=== PATIENT | male | born 1935 | race Caucasian/White ===

== ENCOUNTER 2016-07-30 09:55 | Outpatient (CLI) | payer MEDICARE, OTHER ==
[2016-07-30 13:06] LABS: #Eosinphils 0.1 thou/uL (0.0-0.7); #Lymphocytes 1.3 thou/uL (1.20-3.40); #Monocytes 0.6 thou/uL (0.11-0.59); #Neutrophils 5.7 thou/uL (1.40-6.50); %Basophils 0.6 % (0.0-1.0); %Eosinophils 1.6 % (0.0-10.0); %Lymphocytes 16.9 % (21.0-51.0); %Monocytes 7.3 % (0.0-10.0); Hematocrit 35.9 % (42.0-52.0); Red Blood Cell (RBC) Count 3.66 mill/uL (4.70-6.10); White Blood Cell (WBC) Count 7.7 thou/uL (4.8-10.8)
[2016-07-30 13:29] LABS: ALT (SGPT) 21 U/L (0-55); AST (SGOT) 18 U/L (5-34); Alkaline Phosphatase 88 U/L (40-150); Anion Gap 13 mmol/L (10-20); BUN (Urea Nitrogen) 26 mg/dL (8.4-25.7); Bilirubin, Total 0.4 mg/dL (0.2-1.2); Calc. Creatinine Clearance 0 mL/min (70-130); Calcium 9.7 mg/dL (7.8-10.44); Carbon Dioxide 25 mmol/L (23-31); Chloride 109 mmol/L (98-107); Estimated GFR-MDRD 45; Globulin 2.8 g/dL (2.4-3.5); Protein, Total 6.9 g/dL (5.8-8.1)
[2016-07-30 13:51] LABS: Hemoglobin A1c 5.9 % (4.0-6.0)
== END 2016-07-30 09:56 ==
LOC: NAVSJIPCSP 09:55
PROVIDERS: ATTEND Internal Medicine
DX: E11.9 Type 2 diabetes mellitus without complications (principal); I10 Essential (primary) hypertension
CPT/HCPCS: 36415; 80053; 83036; 84443; 85025

== ENCOUNTER 2016-10-29 11:32 | Outpatient (CLI) | payer MEDICARE, OTHER ==
[2016-10-29 12:55] LABS: ALT (SGPT) 20 U/L (0-55); AST (SGOT) 19 U/L (5-34); Albumin 4.2 g/dL (3.4-4.8); Alkaline Phosphatase 77 U/L (40-150); Anion Gap 16 mmol/L (10-20); BUN (Urea Nitrogen) 23 mg/dL (8.4-25.7); Bilirubin, Total 0.5 mg/dL (0.2-1.2); Calc. Creatinine Clearance 0 mL/min (70-130); Carbon Dioxide 25 mmol/L (23-31); Chloride 107 mmol/L (98-107); Estimated GFR-MDRD 47; Globulin 2.7 g/dL (2.4-3.5); Glucose 157 mg/dL (83-110); Potassium 3.9 mmol/L (3.5-5.1); Protein, Total 6.9 g/dL (5.8-8.1); Sodium 144 mmol/L (136-145)
[2016-10-29 13:04] LABS: #Basophils 0.1 thou/uL (0.0-0.2); #Eosinphils 0.3 thou/uL (0.0-0.7); #Lymphocytes 1.6 thou/uL (1.20-3.40); #Monocytes 0.7 thou/uL (0.11-0.59); #Neutrophils 4.2 thou/uL (1.40-6.50); %Basophils 1.1 % (0.0-1.0); %Eosinophils 4.6 % (0.0-10.0); %Lymphocytes 22.8 % (21.0-51.0); %Monocytes 9.5 % (0.0-10.0); %Neutrophils 62.1 % (42.0-75.0); Hemoglobin 12.1 g/dL (14.0-18.0); Mean Corpuscular HGB CONC 33.3 g/dL (32.0-36.0); Mean Corpuscular Hemoglobin 31.9 pg (27.0-31.0); Mean Platelet Volume 9.5 fL (7.4-10.4); Platelet Count 175 thou/uL (130-400); RBC Distribution Width 13.8 % (11.5-14.5); Red Blood Cell (RBC) Count 3.79 mill/uL (4.70-6.10); White Blood Cell (WBC) Count 6.8 thou/uL (4.8-10.8)
[2016-10-29 13:16] LABS: Hemoglobin A1c 6.2 % (4.0-6.0)
== END 2016-10-29 11:33 | disposition home or self-care (01) ==
LOC: NAVSJIPCSP 11:32
PROVIDERS: ATTEND Internal Medicine
DX: E11.9 Type 2 diabetes mellitus without complications (principal); E78.5 Hyperlipidemia, unspecified; I10 Essential (primary) hypertension
CPT/HCPCS: 36415; 80053; 83036; 85025

== ENCOUNTER 2017-01-28 12:14 | Outpatient (CLI) | payer MEDICARE, OTHER ==
[2017-01-28 12:32] LABS: Hemoglobin A1c 6.1 % (4.0-6.0)
[2017-01-28 12:36] LABS: Anion Gap 18 mmol/L (10-20); BUN (Urea Nitrogen) 25 mg/dL (8.4-25.7); Calc. Creatinine Clearance 0 mL/min (70-130); Calcium 9.4 mg/dL (7.8-10.44); Carbon Dioxide 22 mmol/L (23-31); Chloride 106 mmol/L (98-107); Estimated GFR-MDRD 41; Glucose 169 mg/dL (83-110); Sodium 142 mmol/L (136-145)
== END 2017-01-28 12:15 | disposition home or self-care (01) ==
LOC: NAVSJIPCSP 12:14
PROVIDERS: ATTEND Internal Medicine
DX: I12.9 Hypertensive chronic kidney disease with stage 1 through stage 4 chronic kidney disease, or unspecified chronic kidney disease (principal); N18.3 Chronic kidney disease, stage 3 (moderate); E11.22 Type 2 diabetes mellitus with diabetic chronic kidney disease
CPT/HCPCS: 36415; 80048; 83036; G0103

== ENCOUNTER 2021-09-27 01:59 | Emergency (ER) | payer MEDICARE ==
[2021-09-27 02:30] LABS: #Basophils 0.1 thou/uL (0.0-0.2); #Eosinphils 0.3 thou/uL (0.0-0.7); #Lymphocytes 1.9 thou/uL (1.20-3.40); #Monocytes 0.6 thou/uL (0.11-0.59); #Neutrophils 3.4 thou/uL (1.40-6.50); %Basophils 1.2 % (0.0-1.0); %Eosinophils 4.6 % (0.0-10.0); %Lymphocytes 30.4 % (21.0-51.0); %Monocytes 9.6 % (0.0-10.0); %Neutrophils 54.3 % (42.0-75.0); Hemoglobin 11.6 g/dL (14.0-18.0); Mean Corpuscular HGB CONC 31.6 g/dL (32.0-36.0); Mean Corpuscular Hemoglobin 29.1 pg (27.0-31.0); Mean Platelet Volume 9.2 fL (7.4-10.4); Platelet Count 194 thou/uL (130-400); RBC Distribution Width 13.9 % (11.5-14.5); White Blood Cell (WBC) Count 6.3 thou/uL (4.8-10.8)
[2021-09-27] MEDS ORDERED: Aspirin Chewable 81 MG TAB ONE (02:32)
[2021-09-27 02:44] LABS: ALT (SGPT) 12 U/L (8-55); AST (SGOT) 16 U/L (5-34); Alkaline Phosphatase 74 U/L (40-110); Anion Gap 13 mmol/L (10-20); BUN (Urea Nitrogen) 23 mg/dL (8.4-25.7); Bilirubin, Total 0.3 mg/dL (0.2-1.2); Calc. Creatinine Clearance 0 mL/min (70-130); Calcium 10.1 mg/dL (7.8-10.44); Carbon Dioxide 25 mmol/L (23-31); Chloride 107 mmol/L (98-107); Globulin 3.1 g/dL (2.4-3.5); Glucose 151 mg/dL (83-110); Potassium 3.9 mmol/L (3.5-5.1); Protein, Total 7.1 g/dL (5.8-8.1); Sodium 141 mmol/L (136-145)
[2021-09-27] MEDS ORDERED: Sodium Chloride 0.9% 1,000 ML ONE (03:05)
[2021-09-27 03:49] LABS: SARS-CoV-2 NAA Rapid Test Not Detected (NotDetected)
== END 2021-09-27 04:15 | disposition short-term general hospital (02) ==
LOC: NAV ERS 01:59
DX: R07.9 Chest pain, unspecified (principal); N28.9 Disorder of kidney and ureter, unspecified; I44.0 Atrioventricular block, first degree; E11.9 Type 2 diabetes mellitus without complications; I10 Essential (primary) hypertension; E78.5 Hyperlipidemia, unspecified; Z20.822 Contact with and (suspected) exposure to COVID-19; Z86.73 Personal history of transient ischemic attack (TIA), and cerebral infarction without residual deficits; Z87.891 Personal history of nicotine dependence; Z79.82 Long term (current) use of aspirin; Z79.84 Long term (current) use of oral hypoglycemic drugs; Z79.899 Other long term (current) drug therapy
CPT/HCPCS: 71045; 80053; 83690; 84484; 85025; 93005; J7050; U0002

== ENCOUNTER 2022-04-17 10:03 | Emergency (ER) | payer MEDICARE ==
[2022-04-17] MEDS ORDERED: Bacitracin 1 PK ONE (10:30)
[2022-04-17] MEDS ORDERED: Ondansetron PF 4 MG/2 ML Vial ONE (10:31)
[2022-04-17] MEDS ORDERED: Sodium Chloride 0.9% 500 ML ONE (10:31)
[2022-04-17] MEDS ORDERED: Morphine 2 MG/ML VIAL ONE (10:31)
[2022-04-17 10:55] LABS: ALT (SGPT) 15 U/L (8-55); AST (SGOT) 19 U/L (5-34); Albumin 4.6 g/dL (3.4-4.8); Alkaline Phosphatase 81 U/L (40-110); Anion Gap 21 mmol/L (10-20); BUN (Urea Nitrogen) 24 mg/dL (8.4-25.7); Bilirubin, Total 0.9 mg/dL (0.2-1.2); Calc. Creatinine Clearance 0 mL/min (70-130); Carbon Dioxide 18 mmol/L (23-31); Chloride 107 mmol/L (98-107); Estimated GFR 37; Globulin 2.7 g/dL (2.4-3.5); Glucose 195 mg/dL (83-110); Potassium 4.5 mmol/L (3.5-5.1); Protein, Total 7.3 g/dL (5.8-8.1); Sodium 141 mmol/L (136-145)
[2022-04-17 10:57] LABS: #Basophils 0.1 thou/uL (0.0-0.2); #Eosinphils 0.2 thou/uL (0.0-0.7); #Lymphocytes 1.2 thou/uL (1.20-3.40); #Monocytes 0.5 thou/uL (0.11-0.59); #Neutrophils 5.6 thou/uL (1.40-6.50); %Basophils 1.4 % (0.0-1.0); %Eosinophils 2.6 % (0.0-10.0); %Lymphocytes 16.2 % (21.0-51.0); %Neutrophils 73.8 % (42.0-75.0); Hemoglobin 11.7 g/dL (14.0-18.0); Mean Corpuscular HGB CONC 30.6 g/dL (32.0-36.0); Mean Corpuscular Hemoglobin 29.1 pg (27.0-31.0); Mean Platelet Volume 9.5 fL (7.4-10.4); Platelet Count 202 thou/uL (130-400); RBC Distribution Width 14.1 % (11.5-14.5); Red Blood Cell (RBC) Count 4.03 mill/uL (4.70-6.10); White Blood Cell (WBC) Count 7.6 thou/uL (4.8-10.8)
[2022-04-17] MEDS ORDERED: CEFAZOLIN 1 GM VIAL ONE (11:13)
[2022-04-17] MEDS ORDERED: Sodium Chloride 0.9% 100 ML ONE (11:13)
[2022-04-17 11:48] LABS: Prothrombin Time 13.3 sec (12.0-14.7)
[2022-04-17 11:49] LABS: PTT 30.1 sec (22.9-36.1)
[2022-04-17 13:32] LABS: Bilirubin Negative (Negative); Blood, Urine Trace (Negative); Clarity Clear (Clear); Glucose, Urine (Dipstick) Negative (Negative); Ketone, Urine 15 mg/dL (Negative); Leukocyte Negative (Negative); Nitrite Negative (Negative); Protein, Urine (Dipstick) 100 mg/dL (Neg-Trace); Specific Gravity, Urine 1.015 (1.005-1.030); Urobilinogen 0.2 mg/dL (Less than 2); pH, Urine 5.5 (5.0-9.0)
[2022-04-17 13:39] LABS: RBC/HPF 0-3 HPF (0-3); Squamous Epithelial None Seen HPF (0-3); WBC/HPF None Seen HPF (0-3)
[2022-04-17 13:40] LABS: Bacteria/HPF None Seen HPF (None Seen); Mucous/LPF Few LPF (<2+)
== END 2022-04-17 13:20 | disposition short-term general hospital (02) ==
LOC: NAV ERS 10:03
DX: S06.309A Unspecified focal traumatic brain injury with loss of consciousness of unspecified duration, initial encounter (principal); S02.672A Fracture of alveolus of left mandible, initial encounter for closed fracture; S02.5XXA Fracture of tooth (traumatic), initial encounter for closed fracture; S01.511A Laceration without foreign body of lip, initial encounter; E11.9 Type 2 diabetes mellitus without complications; E78.5 Hyperlipidemia, unspecified; I10 Essential (primary) hypertension; Z86.73 Personal history of transient ischemic attack (TIA), and cerebral infarction without residual deficits; Z87.891 Personal history of nicotine dependence; Z79.84 Long term (current) use of oral hypoglycemic drugs; Z79.899 Other long term (current) drug therapy; W01.0XXA Fall on same level from slipping, tripping and stumbling without subsequent striking against object, initial encounter
CPT/HCPCS: 70450; 70486; 72125; 80053; 81003; 81015; 84484; 85025; 85610; 85730; 93005; 94760; 96365; 96375; J0690; J2270; J2405; J7030

== ENCOUNTER 2022-04-23 10:53 | Inpatient (IN) | payer MEDICARE ==
[2022-04-23] MEDS ORDERED: HYDROcodone/Acetaminophen 5/325 mg Tablet PO PRN (14:23)
[2022-04-23] MEDS ORDERED: Ondansetron ODT 4 MG TAB PO PRN (14:23)
[2022-04-23] MEDS ORDERED: cloNIDine 0.1 MG TAB PO PRN (14:26)
[2022-04-23] MEDS: metFORMIN 500 MG TAB PO SCH (17:49)
[2022-04-23] MEDS: Chlorhexidine Gluconate 15 ML UDCUP SSP SCH (20:38)
[2022-04-23] MEDS: Rosuvastatin 10 MG TAB PO SCH (20:38)
[2022-04-23] MEDS: Metoprolol Tartrate 50 MG TAB PO SCH (20:38)
[2022-04-24 05:58] LABS: Anion Gap 19 mmol/L (10-20); BUN (Urea Nitrogen) 25 mg/dL (8.4-25.7); Calc. Creatinine Clearance 31 mL/min (70-130); Calcium 9.9 mg/dL (7.8-10.44); Carbon Dioxide 17 mmol/L (23-31); Chloride 106 mmol/L (98-107); Estimated GFR 43; Glucose 157 mg/dL (83-110); Potassium 4.6 mmol/L (3.5-5.1); Sodium 137 mmol/L (136-145)
[2022-04-24] MEDS: Chlorhexidine Gluconate 15 ML UDCUP SSP SCH ×2 (08:07→21:40)
[2022-04-24] MEDS: Polyethylene Glycol 3350 17 GM Packet PO SCH (08:08)
[2022-04-24] MEDS: Allopurinol 100 MG TAB PO SCH (08:08)
[2022-04-24] MEDS: metFORMIN 500 MG TAB PO SCH ×2 (08:08→17:46)
[2022-04-24] MEDS: Valsartan 80 MG TAB PO SCH (08:08)
[2022-04-24] MEDS: Amlodipine 10 MG TAB PO SCH (08:09)
[2022-04-24] MEDS: Metoprolol Tartrate 50 MG TAB PO SCH ×2 (08:09→21:40)
[2022-04-24] MEDS ORDERED: HumaLOG 300 UNITS/3 ML VIAL SC PRN (08:22)
[2022-04-24] MEDS ORDERED: Dextrose 50% Abboject 50 ML SYRINGE SLOW IVP PRN (08:22)
[2022-04-24] MEDS ORDERED: FLU VACC QS2022-23(65YR UP)/PF 240 MCG/0.7 ML SYRINGE IM ONE (09:00)
[2022-04-24] MEDS: HumaLOG 300 UNITS/3 ML VIAL SC PRN (13:47)
[2022-04-24] MEDS: Rosuvastatin 10 MG TAB PO SCH (21:40)
[2022-04-25] MEDS: Metoprolol Tartrate 50 MG TAB PO SCH ×2 (07:56→21:08)
[2022-04-25] MEDS: metFORMIN 500 MG TAB PO SCH ×2 (07:56→17:41)
[2022-04-25] MEDS: Polyethylene Glycol 3350 17 GM Packet PO SCH (07:56)
[2022-04-25] MEDS: Chlorhexidine Gluconate 15 ML UDCUP SSP SCH ×2 (07:56→21:09)
[2022-04-25] MEDS: Allopurinol 100 MG TAB PO SCH (07:57)
[2022-04-25] MEDS: Valsartan 80 MG TAB PO SCH (07:57)
[2022-04-25] MEDS: Amlodipine 10 MG TAB PO SCH (07:57)
[2022-04-25] MEDS: HumaLOG 300 UNITS/3 ML VIAL SC PRN (13:08)
[2022-04-25] MEDS: Rosuvastatin 10 MG TAB PO SCH (21:08)
[2022-04-25] MEDS: Melatonin 3 MG TAB PO SCH (21:08)
[2022-04-25] MEDS: Lorazepam 0.5 MG TAB PO PRN (21:08)
[2022-04-26] MEDS: metFORMIN 500 MG TAB PO SCH ×2 (08:46→16:38)
[2022-04-26] MEDS: Valsartan 80 MG TAB PO SCH (08:46)
[2022-04-26] MEDS: Allopurinol 100 MG TAB PO SCH (08:47)
[2022-04-26] MEDS: Metoprolol Tartrate 50 MG TAB PO SCH ×2 (08:47→21:15)
[2022-04-26] MEDS: Chlorhexidine Gluconate 15 ML UDCUP SSP SCH ×2 (08:47→21:15)
[2022-04-26] MEDS: Amlodipine 10 MG TAB PO SCH (08:47)
[2022-04-26] MEDS: Polyethylene Glycol 3350 17 GM Packet PO SCH (08:49)
[2022-04-26] MEDS: Rosuvastatin 10 MG TAB PO SCH (21:15)
[2022-04-26] MEDS: Melatonin 3 MG TAB PO SCH (21:15)
[2022-04-26] MEDS: Lorazepam 0.5 MG TAB PO PRN (23:46)
[2022-04-27] MEDS ORDERED: Haloperidol Lactate 5 MG/ML VIAL IM SCH ×2 (02:30→20:00)
[2022-04-27 05:51] LABS: Anion Gap 15 mmol/L (10-20); BUN (Urea Nitrogen) 44 mg/dL (8.4-25.7); Calc. Creatinine Clearance 26 mL/min (70-130); Calcium 9.5 mg/dL (7.8-10.44); Carbon Dioxide 19 mmol/L (23-31); Chloride 108 mmol/L (98-107); Estimated GFR 38; Glucose 143 mg/dL (83-110); Potassium 4.3 mmol/L (3.5-5.1); Sodium 138 mmol/L (136-145)
[2022-04-27] MEDS: metFORMIN 500 MG TAB PO SCH ×2 (09:01→16:50)
[2022-04-27] MEDS: Polyethylene Glycol 3350 17 GM Packet PO SCH (09:02)
[2022-04-27] MEDS: Metoprolol Tartrate 50 MG TAB PO SCH ×2 (09:02→20:29)
[2022-04-27] MEDS: Allopurinol 100 MG TAB PO SCH (09:02)
[2022-04-27] MEDS: Chlorhexidine Gluconate 15 ML UDCUP SSP SCH ×2 (09:02→20:29)
[2022-04-27] MEDS: Amlodipine 10 MG TAB PO SCH (09:31)
[2022-04-27] MEDS: Valsartan 80 MG TAB PO SCH (09:31)
[2022-04-27] MEDS: HumaLOG 300 UNITS/3 ML VIAL SC PRN ×2 (11:12→16:49)
[2022-04-27] MEDS: Rosuvastatin 10 MG TAB PO SCH (20:28)
[2022-04-27] MEDS: Melatonin 3 MG TAB PO SCH (20:29)
[2022-04-28] MEDS: HumaLOG 300 UNITS/3 ML VIAL SC PRN (06:32)
[2022-04-28] MEDS: Allopurinol 100 MG TAB PO SCH (08:30)
[2022-04-28] MEDS: Metoprolol Tartrate 50 MG TAB PO SCH ×2 (08:31→21:19)
[2022-04-28] MEDS: Amlodipine 10 MG TAB PO SCH (08:31)
[2022-04-28] MEDS: Valsartan 80 MG TAB PO SCH (08:32)
[2022-04-28] MEDS: metFORMIN 500 MG TAB PO SCH ×2 (08:32→17:09)
[2022-04-28] MEDS: Chlorhexidine Gluconate 15 ML UDCUP SSP SCH ×2 (08:32→21:20)
[2022-04-28] MEDS: Polyethylene Glycol 3350 17 GM Packet PO SCH (08:32)
[2022-04-28] MEDS: Acetaminophen 325 MG TAB PO PRN (10:12)
[2022-04-28] MEDS ORDERED: Haloperidol Lactate 5 MG/ML VIAL IM SCH (20:00)
[2022-04-28] MEDS: Rosuvastatin 10 MG TAB PO SCH (21:19)
[2022-04-28] MEDS: Melatonin 3 MG TAB PO SCH (21:19)
[2022-04-29] MEDS: Chlorhexidine Gluconate 15 ML UDCUP SSP SCH ×2 (08:57→20:54)
[2022-04-29] MEDS: Polyethylene Glycol 3350 17 GM Packet PO SCH (08:57)
[2022-04-29] MEDS: Allopurinol 100 MG TAB PO SCH (08:58)
[2022-04-29] MEDS: Valsartan 80 MG TAB PO SCH (08:58)
[2022-04-29] MEDS: Metoprolol Tartrate 50 MG TAB PO SCH ×2 (08:59→20:54)
[2022-04-29] MEDS: metFORMIN 500 MG TAB PO SCH ×2 (08:59→16:59)
[2022-04-29] MEDS: Amlodipine 10 MG TAB PO SCH (08:59)
[2022-04-29] MEDS: HumaLOG 300 UNITS/3 ML VIAL SC PRN (13:17)
[2022-04-29] MEDS: Rosuvastatin 10 MG TAB PO SCH (20:54)
[2022-04-29] MEDS: Melatonin 3 MG TAB PO SCH (20:54)
[2022-04-29] MEDS: Haloperidol 5 MG TAB PO SCH (20:54)
[2022-04-30 06:14] LABS: Anion Gap 15 mmol/L (10-20); BUN (Urea Nitrogen) 40 mg/dL (8.4-25.7); Calc. Creatinine Clearance 29 mL/min (70-130); Calcium 10.1 mg/dL (7.8-10.44); Carbon Dioxide 21 mmol/L (23-31); Chloride 105 mmol/L (98-107); Estimated GFR 42; Glucose 123 mg/dL (83-110); Potassium 4.6 mmol/L (3.5-5.1); Sodium 136 mmol/L (136-145)
[2022-04-30] MEDS: Metoprolol Tartrate 50 MG TAB PO SCH ×2 (08:38→21:14)
[2022-04-30] MEDS: metFORMIN 500 MG TAB PO SCH ×2 (08:39→17:27)
[2022-04-30] MEDS: Polyethylene Glycol 3350 17 GM Packet PO SCH (08:39)
[2022-04-30] MEDS: Valsartan 80 MG TAB PO SCH (08:39)
[2022-04-30] MEDS: Allopurinol 100 MG TAB PO SCH (08:40)
[2022-04-30] MEDS: Chlorhexidine Gluconate 15 ML UDCUP SSP SCH ×2 (08:41→21:13)
[2022-04-30] MEDS: Amlodipine 10 MG TAB PO SCH (08:41)
[2022-04-30] MEDS: HumaLOG 300 UNITS/3 ML VIAL SC PRN (11:52)
[2022-04-30] MEDS: Acetaminophen 325 MG TAB PO PRN (14:30)
[2022-04-30] MEDS: Rosuvastatin 10 MG TAB PO SCH (21:14)
[2022-04-30] MEDS: Melatonin 3 MG TAB PO SCH (21:14)
[2022-04-30] MEDS: Haloperidol 5 MG TAB PO SCH (21:14)
[2022-05-01] MEDS: metFORMIN 500 MG TAB PO SCH ×2 (09:51→17:25)
[2022-05-01] MEDS: Amlodipine 10 MG TAB PO SCH (09:52)
[2022-05-01] MEDS: Metoprolol Tartrate 50 MG TAB PO SCH ×2 (09:52→20:26)
[2022-05-01] MEDS: Allopurinol 100 MG TAB PO SCH (09:53)
[2022-05-01] MEDS: Polyethylene Glycol 3350 17 GM Packet PO SCH (09:56)
[2022-05-01] MEDS: Chlorhexidine Gluconate 15 ML UDCUP SSP SCH ×2 (09:56→20:24)
[2022-05-01] MEDS: Valsartan 80 MG TAB PO SCH (09:57)
[2022-05-01] MEDS: HumaLOG 300 UNITS/3 ML VIAL SC PRN (12:08)
[2022-05-01] MEDS: Melatonin 3 MG TAB PO SCH (20:25)
[2022-05-01] MEDS: Haloperidol 5 MG TAB PO SCH (20:25)
[2022-05-01] MEDS: Rosuvastatin 10 MG TAB PO SCH (20:26)
[2022-05-02] MEDS: Valsartan 80 MG TAB PO SCH (08:55)
[2022-05-02] MEDS: Allopurinol 100 MG TAB PO SCH (09:15)
[2022-05-02] MEDS: Metoprolol Tartrate 50 MG TAB PO SCH ×2 (09:16→20:36)
[2022-05-02] MEDS: Chlorhexidine Gluconate 15 ML UDCUP SSP SCH ×2 (09:17→20:37)
[2022-05-02] MEDS: Amlodipine 10 MG TAB PO SCH (09:17)
[2022-05-02] MEDS: metFORMIN 500 MG TAB PO SCH ×2 (09:17→17:15)
[2022-05-02] MEDS: Polyethylene Glycol 3350 17 GM Packet PO SCH (09:47)
[2022-05-02] MEDS: HumaLOG 300 UNITS/3 ML VIAL SC PRN (12:46)
[2022-05-02] MEDS: Guaifenesin DM 100-10/5 ML UDCUP PO PRN (12:47)
[2022-05-02] MEDS: Melatonin 3 MG TAB PO SCH (20:35)
[2022-05-02] MEDS: Rosuvastatin 10 MG TAB PO SCH (20:35)
[2022-05-02] MEDS: Haloperidol 5 MG TAB PO SCH (20:36)
[2022-05-03] MEDS: Guaifenesin DM 100-10/5 ML UDCUP PO PRN ×2 (05:19→22:52)
[2022-05-03 05:35] LABS: Anion Gap 20 mmol/L (10-20); BUN (Urea Nitrogen) 40 mg/dL (8.4-25.7); Calc. Creatinine Clearance 24 mL/min (70-130); Calcium 9.7 mg/dL (7.8-10.44); Carbon Dioxide 20 mmol/L (23-31); Chloride 105 mmol/L (98-107); Estimated GFR 33; Glucose 142 mg/dL (83-110); Potassium 4.8 mmol/L (3.5-5.1); Sodium 140 mmol/L (136-145)
[2022-05-03 05:38] LABS: #Basophils 0.1 thou/uL (0.0-0.2); #Lymphocytes 1.1 thou/uL (1.20-3.40); #Monocytes 0.8 thou/uL (0.11-0.59); #Neutrophils 9.1 thou/uL (1.40-6.50); %Basophils 1.1 % (0.0-1.0); %Eosinophils 0.3 % (0.0-10.0); %Lymphocytes 10.1 % (21.0-51.0); %Monocytes 6.9 % (0.0-10.0); %Neutrophils 81.7 % (42.0-75.0); Hemoglobin 11.3 g/dL (14.0-18.0); Mean Corpuscular HGB CONC 32.7 g/dL (32.0-36.0); Mean Corpuscular Hemoglobin 31.1 pg (27.0-31.0); Mean Corpuscular Volume 95.1 fL (78.0-98.0); Mean Platelet Volume 8.5 fL (7.4-10.4); Platelet Count 235 thou/uL (130-400); Red Blood Cell (RBC) Count 3.62 mill/uL (4.70-6.10); White Blood Cell (WBC) Count 11.2 thou/uL (4.8-10.8)
[2022-05-03] MEDS: Amlodipine 10 MG TAB PO SCH (08:03)
[2022-05-03] MEDS: Valsartan 80 MG TAB PO SCH (08:04)
[2022-05-03] MEDS: Metoprolol Tartrate 50 MG TAB PO SCH ×2 (08:04→20:25)
[2022-05-03] MEDS: Allopurinol 100 MG TAB PO SCH (08:04)
[2022-05-03] MEDS: Chlorhexidine Gluconate 15 ML UDCUP SSP SCH ×2 (08:05→20:25)
[2022-05-03] MEDS: Polyethylene Glycol 3350 17 GM Packet PO SCH (08:05)
[2022-05-03] MEDS: metFORMIN 500 MG TAB PO SCH ×2 (08:05→16:48)
[2022-05-03] MEDS: HumaLOG 300 UNITS/3 ML VIAL SC PRN (12:15)
[2022-05-03] MEDS: Sodium Chloride 0.9% 1,000 ML IV SCH ×2 (12:15→23:45)
[2022-05-03] MEDS: Rosuvastatin 10 MG TAB PO SCH (20:25)
[2022-05-03] MEDS: Melatonin 3 MG TAB PO SCH (20:25)
[2022-05-03] MEDS: Haloperidol 5 MG TAB PO SCH (20:38)
[2022-05-04] MEDS: Lorazepam 0.5 MG TAB PO PRN ×2 (00:02→21:00)
[2022-05-04 05:34] LABS: #Basophils 0.1 thou/uL (0.0-0.2); #Lymphocytes 0.9 thou/uL (1.20-3.40); #Monocytes 0.7 thou/uL (0.11-0.59); #Neutrophils 5.6 thou/uL (1.40-6.50); %Eosinophils 0.3 % (0.0-10.0); %Lymphocytes 12.5 % (21.0-51.0); %Neutrophils 76.2 % (42.0-75.0); Hemoglobin 9.9 g/dL (14.0-18.0); Mean Corpuscular HGB CONC 31.1 g/dL (32.0-36.0); Mean Corpuscular Hemoglobin 30.1 pg (27.0-31.0); Mean Corpuscular Volume 96.9 fL (78.0-98.0); Mean Platelet Volume 9.4 fL (7.4-10.4); Platelet Count 222 thou/uL (130-400); RBC Distribution Width 13.8 % (11.5-14.5); White Blood Cell (WBC) Count 7.4 thou/uL (4.8-10.8)
[2022-05-04 05:43] LABS: Anion Gap 16 mmol/L (10-20); BUN (Urea Nitrogen) 37 mg/dL (8.4-25.7); Calc. Creatinine Clearance 25 mL/min (70-130); Calcium 9.2 mg/dL (7.8-10.44); Carbon Dioxide 19 mmol/L (23-31); Chloride 108 mmol/L (98-107); Estimated GFR 38; Glucose 139 mg/dL (83-110); Potassium 4.3 mmol/L (3.5-5.1); Sodium 139 mmol/L (136-145)
[2022-05-04] MEDS: metFORMIN 500 MG TAB PO SCH ×2 (09:29→16:38)
[2022-05-04] MEDS: Allopurinol 100 MG TAB PO SCH (09:30)
[2022-05-04] MEDS: Metoprolol Tartrate 50 MG TAB PO SCH ×2 (09:32→20:39)
[2022-05-04] MEDS: Amlodipine 10 MG TAB PO SCH (09:32)
[2022-05-04] MEDS: Chlorhexidine Gluconate 15 ML UDCUP SSP SCH ×2 (09:32→20:37)
[2022-05-04] MEDS: Polyethylene Glycol 3350 17 GM Packet PO SCH (09:32)
[2022-05-04] MEDS: Valsartan 80 MG TAB PO SCH (09:32)
[2022-05-04] MEDS: Haloperidol 5 MG TAB PO SCH (20:37)
[2022-05-04] MEDS: Melatonin 3 MG TAB PO SCH (20:39)
[2022-05-04] MEDS: Rosuvastatin 10 MG TAB PO SCH (20:39)
[2022-05-05 06:22] LABS: Anion Gap 14 mmol/L (10-20); BUN (Urea Nitrogen) 28 mg/dL (8.4-25.7); Calc. Creatinine Clearance 31 mL/min (70-130); Calcium 9.5 mg/dL (7.8-10.44); Carbon Dioxide 21 mmol/L (23-31); Chloride 109 mmol/L (98-107); Estimated GFR 48; Glucose 124 mg/dL (83-110); Potassium 4.2 mmol/L (3.5-5.1); Sodium 140 mmol/L (136-145)
[2022-05-05] MEDS: Chlorhexidine Gluconate 15 ML UDCUP SSP SCH ×2 (09:08→20:14)
[2022-05-05] MEDS: Polyethylene Glycol 3350 17 GM Packet PO SCH (09:08)
[2022-05-05] MEDS: Allopurinol 100 MG TAB PO SCH (09:09)
[2022-05-05] MEDS: metFORMIN 500 MG TAB PO SCH ×2 (09:09→17:22)
[2022-05-05] MEDS: Amlodipine 10 MG TAB PO SCH (09:10)
[2022-05-05] MEDS: Valsartan 80 MG TAB PO SCH (09:10)
[2022-05-05] MEDS: Metoprolol Tartrate 50 MG TAB PO SCH ×2 (09:10→20:14)
[2022-05-05] MEDS: Rosuvastatin 10 MG TAB PO SCH (20:14)
[2022-05-05] MEDS: Melatonin 3 MG TAB PO SCH (20:14)
[2022-05-05] MEDS: Haloperidol 5 MG TAB PO SCH (20:14)
[2022-05-05] MEDS: Lorazepam 0.5 MG TAB PO PRN (23:51)
[2022-05-06 08:22] LABS: Anion Gap 17 mmol/L (10-20); BUN (Urea Nitrogen) 29 mg/dL (8.4-25.7); Calc. Creatinine Clearance 30 mL/min (70-130); Calcium 9.6 mg/dL (7.8-10.44); Carbon Dioxide 22 mmol/L (23-31); Chloride 106 mmol/L (98-107); Estimated GFR 47; Glucose 126 mg/dL (83-110); Potassium 4.7 mmol/L (3.5-5.1); Sodium 140 mmol/L (136-145)
[2022-05-06] MEDS: Valsartan 80 MG TAB PO SCH (08:59)
[2022-05-06] MEDS: Allopurinol 100 MG TAB PO SCH (08:59)
[2022-05-06] MEDS: metFORMIN 500 MG TAB PO SCH ×2 (08:59→17:38)
[2022-05-06] MEDS: Metoprolol Tartrate 50 MG TAB PO SCH ×2 (08:59→21:03)
[2022-05-06] MEDS: Polyethylene Glycol 3350 17 GM Packet PO SCH (09:00)
[2022-05-06] MEDS: Chlorhexidine Gluconate 15 ML UDCUP SSP SCH ×2 (09:00→21:04)
[2022-05-06] MEDS: Amlodipine 10 MG TAB PO SCH (09:00)
[2022-05-06] MEDS: HumaLOG 300 UNITS/3 ML VIAL SC PRN (11:39)
[2022-05-06] MEDS: Rosuvastatin 10 MG TAB PO SCH (21:03)
[2022-05-06] MEDS: Melatonin 3 MG TAB PO SCH (21:03)
[2022-05-06] MEDS: Lorazepam 0.5 MG TAB PO PRN (21:08)
[2022-05-07] MEDS: Polyethylene Glycol 3350 17 GM Packet PO SCH (08:01)
[2022-05-07] MEDS: Valsartan 80 MG TAB PO SCH (08:02)
[2022-05-07] MEDS: Metoprolol Tartrate 50 MG TAB PO SCH ×2 (08:02→20:14)
[2022-05-07] MEDS: metFORMIN 500 MG TAB PO SCH ×2 (08:02→16:47)
[2022-05-07] MEDS: Allopurinol 100 MG TAB PO SCH (08:02)
[2022-05-07] MEDS: Amlodipine 10 MG TAB PO SCH (08:02)
[2022-05-07] MEDS: Chlorhexidine Gluconate 15 ML UDCUP SSP SCH ×2 (08:03→20:14)
[2022-05-07] MEDS ORDERED: Haloperidol Lactate 5 MG/ML VIAL ONE (10:54)
[2022-05-07 12:27] LABS: #Basophils 0.1 thou/uL (0.0-0.2); #Monocytes 0.6 thou/uL (0.11-0.59); #Neutrophils 4.9 thou/uL (1.40-6.50); %Basophils 1.3 % (0.0-1.0); %Eosinophils 0.5 % (0.0-10.0); %Lymphocytes 14.6 % (21.0-51.0); %Monocytes 8.8 % (0.0-10.0); %Neutrophils 74.9 % (42.0-75.0); Hemoglobin 11.7 g/dL (14.0-18.0); Mean Corpuscular HGB CONC 31.6 g/dL (32.0-36.0); Mean Corpuscular Hemoglobin 30.5 pg (27.0-31.0); Mean Corpuscular Volume 96.5 fL (78.0-98.0); Platelet Count 259 thou/uL (130-400); RBC Distribution Width 13.3 % (11.5-14.5); Red Blood Cell (RBC) Count 3.83 mill/uL (4.70-6.10); White Blood Cell (WBC) Count 6.5 thou/uL (4.8-10.8)
[2022-05-07 12:37] LABS: ALT (SGPT) 15 U/L (8-55); AST (SGOT) 20 U/L (5-34); Albumin 3.8 g/dL (3.4-4.8); Alkaline Phosphatase 98 U/L (40-110); Anion Gap 18 mmol/L (10-20); BUN (Urea Nitrogen) 30 mg/dL (8.4-25.7); Bilirubin, Total 0.3 mg/dL (0.2-1.2); Calc. Creatinine Clearance 26 mL/min (70-130); Carbon Dioxide 21 mmol/L (23-31); Chloride 104 mmol/L (98-107); Estimated GFR 40; Globulin 2.9 g/dL (2.4-3.5); Glucose 119 mg/dL (83-110); Potassium 4.4 mmol/L (3.5-5.1); Protein, Total 6.7 g/dL (5.8-8.1); Sodium 139 mmol/L (136-145)
[2022-05-07] MEDS: Lorazepam 0.5 MG TAB PO PRN (16:46)
[2022-05-07] MEDS ORDERED: Haloperidol 5 MG TAB PO PRN (17:04)
[2022-05-07] MEDS: Haloperidol 5 MG TAB PO SCH (19:08)
[2022-05-07] MEDS: Melatonin 3 MG TAB PO SCH (20:14)
[2022-05-07] MEDS: Rosuvastatin 10 MG TAB PO SCH (20:14)
[2022-05-08] MEDS: Haloperidol 5 MG TAB PO SCH ×4 (00:33→17:50)
[2022-05-08] MEDS: HumaLOG 300 UNITS/3 ML VIAL SC PRN ×2 (06:16→11:49)
[2022-05-08] MEDS: Amlodipine 10 MG TAB PO SCH (10:12)
[2022-05-08] MEDS: metFORMIN 500 MG TAB PO SCH ×2 (10:12→17:49)
[2022-05-08] MEDS: Metoprolol Tartrate 50 MG TAB PO SCH ×2 (10:12→21:57)
[2022-05-08] MEDS: Valsartan 80 MG TAB PO SCH (10:12)
[2022-05-08] MEDS: Allopurinol 100 MG TAB PO SCH (10:13)
[2022-05-08] MEDS: Chlorhexidine Gluconate 15 ML UDCUP SSP SCH ×2 (10:13→21:56)
[2022-05-08] MEDS: Polyethylene Glycol 3350 17 GM Packet PO SCH (10:13)
[2022-05-08] MEDS: Rosuvastatin 10 MG TAB PO SCH (21:56)
[2022-05-08] MEDS: Melatonin 3 MG TAB PO SCH (21:57)
[2022-05-08] MEDS: Lorazepam 0.5 MG TAB PO PRN (21:57)
[2022-05-09] MEDS: Haloperidol 5 MG TAB PO SCH ×6 (00:25→18:46)
[2022-05-09] MEDS: Polyethylene Glycol 3350 17 GM Packet PO SCH (09:50)
[2022-05-09] MEDS: Valsartan 80 MG TAB PO SCH (09:52)
[2022-05-09] MEDS: metFORMIN 500 MG TAB PO SCH ×2 (09:52→17:05)
[2022-05-09] MEDS: Metoprolol Tartrate 50 MG TAB PO SCH ×2 (09:52→21:10)
[2022-05-09] MEDS: Allopurinol 100 MG TAB PO SCH (09:52)
[2022-05-09] MEDS: Chlorhexidine Gluconate 15 ML UDCUP SSP SCH ×2 (09:52→21:10)
[2022-05-09] MEDS: Amlodipine 10 MG TAB PO SCH (09:52)
[2022-05-09] MEDS: HumaLOG 300 UNITS/3 ML VIAL SC PRN (12:52)
[2022-05-09] MEDS: Lorazepam 0.5 MG TAB PO PRN (21:10)
[2022-05-09] MEDS: Rosuvastatin 10 MG TAB PO SCH (21:10)
[2022-05-09] MEDS: Melatonin 3 MG TAB PO SCH (21:10)
[2022-05-10] MEDS: Haloperidol 5 MG TAB PO SCH ×4 (04:48→23:35)
[2022-05-10] MEDS: Metoprolol Tartrate 50 MG TAB PO SCH ×2 (08:39→20:11)
[2022-05-10] MEDS: Allopurinol 100 MG TAB PO SCH (08:39)
[2022-05-10] MEDS: metFORMIN 500 MG TAB PO SCH ×2 (08:39→17:59)
[2022-05-10] MEDS: Polyethylene Glycol 3350 17 GM Packet PO SCH (08:40)
[2022-05-10] MEDS: Chlorhexidine Gluconate 15 ML UDCUP SSP SCH ×2 (08:40→20:11)
[2022-05-10] MEDS: Amlodipine 10 MG TAB PO SCH (08:40)
[2022-05-10] MEDS: Valsartan 80 MG TAB PO SCH (08:41)
[2022-05-10] MEDS: Rosuvastatin 10 MG TAB PO SCH (20:11)
[2022-05-10] MEDS: Lorazepam 0.5 MG TAB PO PRN (20:11)
[2022-05-10] MEDS: Melatonin 3 MG TAB PO SCH (20:11)
[2022-05-11] MEDS: Haloperidol 5 MG TAB PO SCH ×3 (05:48→17:59)
[2022-05-11] MEDS: Valsartan 80 MG TAB PO SCH (10:17)
[2022-05-11] MEDS: Polyethylene Glycol 3350 17 GM Packet PO SCH (10:17)
[2022-05-11] MEDS: Allopurinol 100 MG TAB PO SCH (10:17)
[2022-05-11] MEDS: Amlodipine 10 MG TAB PO SCH (10:19)
[2022-05-11] MEDS: metFORMIN 500 MG TAB PO SCH ×2 (10:19→17:59)
[2022-05-11] MEDS: Metoprolol Tartrate 50 MG TAB PO SCH ×2 (10:19→21:05)
[2022-05-11] MEDS: Chlorhexidine Gluconate 15 ML UDCUP SSP SCH ×2 (10:24→21:03)
[2022-05-11] MEDS: Lorazepam 0.5 MG TAB PO PRN (18:23)
[2022-05-11] MEDS: Acetaminophen 325 MG TAB PO PRN (21:03)
[2022-05-11] MEDS: Rosuvastatin 10 MG TAB PO SCH (21:03)
[2022-05-11] MEDS: Melatonin 3 MG TAB PO SCH (21:04)
[2022-05-12] MEDS: Haloperidol 5 MG TAB PO SCH ×3 (01:56→11:40)
[2022-05-12] MEDS: Allopurinol 100 MG TAB PO SCH (07:59)
[2022-05-12] MEDS: Chlorhexidine Gluconate 15 ML UDCUP SSP SCH (07:59)
[2022-05-12] MEDS: Polyethylene Glycol 3350 17 GM Packet PO SCH (08:00)
[2022-05-12] MEDS: metFORMIN 500 MG TAB PO SCH (08:00)
[2022-05-12] MEDS: Valsartan 80 MG TAB PO SCH (08:01)
[2022-05-12] MEDS: Amlodipine 10 MG TAB PO SCH (08:02)
[2022-05-12] MEDS: Metoprolol Tartrate 50 MG TAB PO SCH (08:02)
[2022-05-12 10:51] VITALS: BP 153/74; TEMP 97.3
[2022-05-12 12:22] VITALS: BMI 16.7
== END 2022-05-12 16:15 | disposition short-term general hospital (02) | DRG 560 ==
LOC: NAV ACUTE 15:34
PROVIDERS: ADMIT Family Medicine; ATTEND Family Medicine
DX: S02.67 Fracture of alveolus of mandible (principal); F03.918 Unspecified dementia, unspecified severity, with other behavioral disturbance; I13.0 Hypertensive heart and chronic kidney disease with heart failure and stage 1 through stage 4 chronic kidney disease, or unspecified chronic kidney disease; I50.32 Chronic diastolic (congestive) heart failure; R64 Cachexia; Z68.1 Body mass index [BMI] 19.9 or less, adult; W19.XXXD Unspecified fall, subsequent encounter; N18.32 Chronic kidney disease, stage 3b; Z20.822 Contact with and (suspected) exposure to COVID-19; R53.1 Weakness; E78.5 Hyperlipidemia, unspecified; E11.22 Type 2 diabetes mellitus with diabetic chronic kidney disease; Z86.73 Personal history of transient ischemic attack (TIA), and cerebral infarction without residual deficits; Z90.49 Acquired absence of other specified parts of digestive tract; Z87.891 Personal history of nicotine dependence; S06.2XAD Diffuse traumatic brain injury with loss of consciousness status unknown, subsequent encounter; X58.XXXD Exposure to other specified factors, subsequent encounter
CPT/HCPCS: 36415; 36416; 70450; 71045; 80048; 80053; 85025; 87811; J1630; J1815; J7050